=== PATIENT | female | born 2000 | race Caucasian/White ===

== ENCOUNTER 2022-09-04 19:46 | Emergency (ER) | payer OTHER ==
[~2022-09-04] VITALS: Ht 149.9 cm; Wt 52.5 kg
[2022-09-04 20:12] LABS: COVID AG,FIA SOURCE NASAL SWAB
[2022-09-04] MEDS ORDERED: ACETAMINOPHEN 500 MG TABLET PO ONE (20:15)
[2022-09-04] MEDS ORDERED: GuaiFENesin/D-METHORPHAN [SUGAR-FREE] 200-20MG/10 ML SYRUP UDCUP PO ONE (20:15)
[2022-09-04 20:35] LABS: INFLUENZA TYPE B NEGATIVE FOR TYPE B (NEGATIVE)
[2022-09-04 21:03] LABS: INFLUENZA TYPE A POSITIVE FOR TYPE A (NEGATIVE)
[2022-09-04] MEDS ORDERED: ACET-66 PO (21:10)
[2022-09-04] MEDS ORDERED: GUAIFDM PO (21:10)
[2022-09-04 21:30] VITALS: BP 115/74
== END 2022-09-04 21:35 | disposition home or self-care (01) ==
LOC: EMS 19:46
DX: J10.1 Influenza due to other identified influenza virus with other respiratory manifestations (principal); Z20.822 Contact with and (suspected) exposure to COVID-19
CPT/HCPCS: 87804; 99283